=== PATIENT | male | born 2000 | race Caucasian/White ===

== ENCOUNTER 2018-06-23 20:39 | Emergency (ER) | payer OTHER ==
[~2018-06-23] VITALS: Ht 182.9 cm; Wt 145.1 kg
[~2018-06-23 20:39] MED LIST: CEPH-568 PO; DOCU-144 PO; HYDR-1189 PO; METR-154 PO
[2018-06-23 20:47] VITALS: BP_SYST 148
[2018-06-23] MEDS ORDERED: KETOROLAC TROMETHAMINE 60 MG/2 ML VIAL IM ONE (21:45)
[2018-06-23] MEDS ORDERED: PROCHLORPERAZINE EDISYLATE 10 MG/2 ML VIAL IM ONE (21:45)
[2018-06-23 23:03] VITALS: BP_SYST 148
== END 2018-06-23 23:03 | disposition home or self-care (01) ==
LOC: SED 20:39
DX: R51 Headache (principal); R11.2 Nausea with vomiting, unspecified; R03.0 Elevated blood-pressure reading, without diagnosis of hypertension; Z79.899 Other long term (current) drug therapy; Z88.1 Allergy status to other antibiotic agents; Z88.8 Allergy status to other drugs, medicaments and biological substances
CPT/HCPCS: 96372; 99283; J0780; J1885

== ENCOUNTER 2019-08-17 03:00 | Emergency (ER) | payer OTHER ==
[~2019-08-17] VITALS: Ht 188 cm; Wt 117.9 kg
[2019-08-17 03:05] VITALS: BP_SYST 131
[2019-08-17] MEDS ORDERED: NACL 0.9% 1,000 ML IV ONE (04:16)
[2019-08-17 04:58] LABS: BASOPHILS % (AUTO) 0.7 % (0.0-2.0); EOSINOPHILS # (AUTO) 0.1 K/uL (0.0-0.4); HEMATOCRIT 45.1 % (36-54); HEMOGLOBIN 15.1 g/dL (14.0-18.0); LYMPHOCYTES # (AUTO) 1.4 K/uL (1.0-5.5); MEAN CORPUSCULAR HEMOGLOBIN 26 pg (27-31); MEAN CORPUSCULAR HGB CONC 34 % (32-36); MEAN CORPUSCULAR VOLUME 78 fL (79.0-98.0); MONOCYTES # (AUTO) 0.5 K/uL (0.0-1.0); MONOCYTES % (AUTO) 9.4 % (1.7-9.3); NEUTROPHILS # (AUTO) 3.3 K/uL (1.8-7.7); NEUTROPHILS % (AUTO) 61.9 % (40.0-70.0); PLATELET COUNT (AUTO) 205 K/uL (130-430); RED BLOOD CELL COUNT(AUTO) 5.75 MIL/uL (4.2-6.2); WHITE BLOOD COUNT (AUTO) 5.3 K/uL (4.5-11.0)
[2019-08-17 05:15] LABS: CALCIUM 9.2 mg/dL (8.4-11.0); CREATININE 1.11 mg/dL (0.55-1.30); POTASSIUM 3.6 mmol/L (3.5-5.1)
[2019-08-17 05:21] LABS: ALBUMIN 3.9 g/dL (3.4-4.8); TOTAL BILIRUBIN 1.4 mg/dL (0.0-1.0)
[2019-08-17 05:41] LABS: BILIRUBIN,URINE NEGATIVE (NEGATIVE); BLOOD, URINE NEGATIVE (NEGATIVE); CLARITY/URINE CLEAR (CLEAR); COLOR,URINE YELLOW (YELLOW); GLUCOSE,URINE NEGATIVE (NEGATIVE); KETONES,URINE NEGATIVE (NEGATIVE); LEUKOCYTE ESTERASE ,URINE NEGATIVE (NEGATIVE); NITRITE, URINE NEGATIVE (NEGATIVE); PROTEIN URINE NEGATIVE (NEGATIVE); UROBILINOGEN,URINE 0.2 (0.2-1.0)
[2019-08-17 07:30] VITALS: BP_SYST 125
== END 2019-08-17 07:29 | disposition home or self-care (01) ==
LOC: SED 03:00
DX: R10.11 Right upper quadrant pain (principal); F12.90 Cannabis use, unspecified, uncomplicated; Z87.891 Personal history of nicotine dependence; Z88.6 Allergy status to analgesic agent
CPT/HCPCS: 36415; 80053; 81003; 85025; 99283; J7030

== ENCOUNTER 2021-09-21 09:37 | Emergency (ER) | payer OTHER ==
[~2021-09-21] VITALS: Ht 188 cm; Wt 154.2 kg
[~2021-09-21 09:37] MED LIST changes: -HYDR-1189 PO; +HYDR-3919 PO
[2021-09-21 10:03] VITALS: BP_SYST 122
--- NOTE | 2021-09-21 10:06 | NUR ---
Patient to ER bed 3 to gown for evaluation. Side rails up. Report given to JOHANNA RAMOS.
--- NOTE | 2021-09-21 10:10 | NUR ---
ER at bedside examining patient.
--- NOTE | 2021-09-21 10:20 | NUR ---
Pt presents to the ER BIB self. CC inflammatory anus. Pt skin intact, pt aaox4 even unlabored breathing, afebrile, denies NVD. Pt notes uncomfortable feeling in anal region.
[2021-09-21] MEDS ORDERED: PHEN51CR24 RC (10:37)
--- NOTE | 2021-09-21 10:40 | NUR ---
Patient given written and verbal discharge instructions and verbalizes understanding. ER MD discussed with patient the results and treatment provided. Patient in stable condition. ID arm band removed. Opportunity for questions provided and answered. Medication side effect fact sheet provided.
[2021-09-21 10:47] VITALS: BP_SYST 122
== END 2021-09-21 10:40 | disposition home or self-care (01) ==
LOC: SED 09:37
DX: K62.89 Other specified diseases of anus and rectum (principal)
CPT/HCPCS: 99282